=== PATIENT | male | born 1965 | race Caucasian/White ===

== ENCOUNTER 2022-09-04 18:11 | Emergency (ER) | payer SELFPAY ==
[~2022-09-04] VITALS: Ht 165.1 cm; Wt 65.8 kg
[2022-09-04 18:15] VITALS: BP_SYST 182
--- NOTE | 2022-09-04 18:50 | NUR ---
pt biba awake and alert aox4. no sob or distress. PT C/O HEADACHE PAIN, 05/04. PT WAS DRIVING AND PULLED OVER TO CALL 911. BP WAS 235/145 WHEN MAJOR [employer] OFFICER WAS ON SCENE. ONCE IN ER BP WAS 185/95. PT HAS HX OF HTN. PT DENIES N/V AND CHEST PAIN.
--- NOTE | 2022-09-04 18:55 | NUR ---
MD DR PIEDRA AT BEDSIDE
[2022-09-04] MEDS ORDERED: cloNIDine HCL 0.2 MG TABLET PO PRN (19:15)
[2022-09-04] MEDS ORDERED: cloNIDine HCL 0.1 MG TABLET ONE (19:17)
--- NOTE | 2022-09-04 19:20 | NUR ---
REPORT GIVEN TO JOSESITO. PT KORIN. VSS
--- NOTE | 2022-09-04 19:30 | NUR ---
Pt resting in bed with eyes closed. resp even and unlabored. Pt presently on monitor.
[2022-09-04 19:54] LABS: BASOPHILS % (AUTO) 0.6 % (0.0-2.0); EOSINOPHILS # (AUTO) 0.1 K/uL (0.0-0.4); EOSINOPHILS % (AUTO) 0.8 % (0.0-4.0); HEMATOCRIT 43.6 % (36-54); HEMOGLOBIN 14.6 g/dL (14.0-18.0); LYMPHOCYTES # (AUTO) 2.4 K/uL (1.0-5.5); LYMPHOCYTES % (AUTO) 30.6 % (20.5-51.5); MEAN CORPUSCULAR HEMOGLOBIN 29 pg (27-31); MEAN CORPUSCULAR HGB CONC 34 % (32-36); MEAN CORPUSCULAR VOLUME 87 fL (79.0-98.0); MONOCYTES # (AUTO) 0.7 K/uL (0.0-1.0); MONOCYTES % (AUTO) 8.3 % (1.7-9.3); NEUTROPHILS # (AUTO) 4.8 K/uL (1.8-7.7); NEUTROPHILS % (AUTO) 59.7 % (40.0-70.0); PLATELET COUNT (AUTO) 249 K/uL (130-430); RED CELL DISTRIBUTION WIDTH 13.3 % (9.0-15.0)
[2022-09-04 20:10] LABS: PROTHROMBIN TIME 10.2 SECS (9.5-12.5)
[2022-09-04 20:23] LABS: ALANINE AMINOTRANSFERASE 21 U/L (12-78); ALBUMIN 3.8 g/dL (3.4-4.8); ANION GAP 10 (5-15); ASPARTATE AMINOTRANSFERASE 20 U/L (10-37); CALCIUM 8.8 mg/dL (8.4-11.0); CHLORIDE 101 mmol/L (98-107); CREATININE 0.81 mg/dL (0.55-1.30); GLUCOSE 100 mg/dL (70-99); TOTAL BILIRUBIN 0.8 mg/dL (0.0-1.0); UREA NITROGEN, BLOOD 14 mg/dL (8-21)
[2022-09-04 20:25] LABS: ALCOHOL, BLOOD < 3 mg/dL (<10); GFR AFRICAN AMERICAN 126 mL/min (>90)
[2022-09-04 22:05] VITALS: BP_SYST 96
--- NOTE | 2022-09-04 22:05 | NUR ---
Called extension [phone] and left message. Prompted to notify clinical social worker by ER charge nurse/er provider. Pt discharged; however, admitted to hearing voices and desired to see a clinical social worker to arrange psych services. Pt denies si/hi. Pt d/c'd to waiting room. Pt agreed to wait in waiting room for medical social worker.
--- NOTE | 2022-09-04 22:06 | NUR ---
Patient given written and verbal discharge instructions and verbalizes understanding. ER MD discussed with patient the results and treatment provided. Patient in stable condition. ID arm band removed.Rx of bp med given. Patient educated on pain management and to follow up with PMD regarding blood pressure management. Pt encouraged to obtain automated blood pressure to monitor bp trends. Pt placed in waiting room and is waiting on social scientist. Opportunity for questions provided and answered. Medication side effect fact sheet provided.
== END 2022-09-04 22:05 | disposition home or self-care (01) ==
LOC: SED 18:11
DX: R51.9 Headache, unspecified (principal); I10 Essential (primary) hypertension; Z79.899 Other long term (current) drug therapy
CPT/HCPCS: 99285; 70450; 71045; 80053; 82550; 83880; 85025; 85610; 85730; 84484; 36415; 93005; 76376; G0482